=== PATIENT | female | born 1945 | race Caucasian/White ===

== ENCOUNTER 2016-09-26 15:57 | Emergency (ER) | payer OTHER, MEDICARE ==
[~2016-09-26] VITALS: Ht 167.6 cm; Wt 54.4 kg
[2016-09-26 16:08] VITALS: BP 119/77
--- NOTE | 2016-09-26 16:40 | ED UPPER/LOWER EXTREMITY COMPL ---
History of Present Illness General Chief Complaint: Lower Extremity Problems Stated Complaint: SIB WALK IN TO R/O BLOOD CLOT Source: patient, family Exam Limitations: no limitations Vital Signs & Intake/Output Vital Signs & Intake/Output Vital Signs Date Time Temp Pulse Resp B/P Pulse O2 O2 Flow FiO2 Ox Delivery Rate 09/26 1608 97.2 87 16 119/77 95 Room Air Allergies Coded Allergies: NO KNOWN ALLERGIES (01/22/13) Reconcile Medications Clonazepam 0.5 MG TABLET 1 TAB PO BID PRN ANXIETY (Reported) Desipramine HCl 25 MG TABLET 3 TAB PO QAM MENTAL HEALTH (Reported) Escitalopram Oxalate 10 MG TABLET 1 TAB PO DAILY MENTAL HEALTH (Reported) Gabapentin 300 MG CAPSULE 1 CAP PO BID MENTAL HEALTH (Reported) Multivitamin (Multi-Day Vitamins) 1 EACH TABLET 1 TAB PO DAILY SUPPLEMENT ( Reported) Temazepam 22.5 MG CAPSULE 1 CAP PO QPM SLEEP (Reported) Venlafaxine HCl (Venlafaxine HCl ER) 150 MG CAP.ER.24H 1 CAP PO DAILY MENTAL HEALTH (Reported) Triage Note: PT STATSE HER LEFT LEG IS SWOLLEN SINCE YESTERDAY,. PT WAS SENT IN BY [facility] TO R/O DVT PT STATES SHE DOES NOT REMEMBER INJURY HER LEG. PT IS A SMOKER. STATES SHE NEVER HAD A BLOOD CLOT BEFORE. Triage Nurses Notes Reviewed? yes Onset: Abrupt Duration: day(s): (YESTERDAY) Pain/Injury Location: Left: Leg. No Modifying Factors: none HPI: 71-year-old female comes into emergency room with complaints of left calf pain and swelling has been going on since yesterday. Patient denies any trauma or falls. Denies any prior history of blood clots. Denies any anticoagulants that she is on. Denies any prior history of similar symptoms. Patient was sent in for ultrasound to rule out blood clot in the left lower leg. (NINA KRUGER) Past History Travel History Traveled to [place] past 21 day No Medical History Any Pertinent Medical History? see below for history Musculoskeletal: osteoporosis Psychiatric: depression Surgical History Surgical History: non-contributory Psychosocial History Who do you live with Spouse Services at Home NO What is your primary language Yakut Tobacco Use: Current Daily Use Daily Tobacco Use Amount/Type: => 5 Cigarettes daily ETOH Use: occasional use Illicit Drug Use: denies illicit drug use Family History Hx Contributory? No (NINA KRUGER) Review of Systems Review of Systems Constitutional: Reports: no symptoms. EENTM: Reports: no symptoms. Respiratory: Reports: no symptoms. Cardiovascular: Reports: no symptoms. Gastrointestinal/Abdominal: Reports: no symptoms. Genitourinary: Reports: no symptoms. Musculoskeletal: Reports: see HPI. Skin: Reports: no symptoms. Neurological/Psychological: Reports: no symptoms. Hematologic/Endocrine: Reports: no symptoms. Immunological: Reports: no symptoms. All Other Systems: Reviewed and Negative (NINA KRUGER) Physical Exam Physical Exam General Appearance: well developed/nourished, no apparent distress, alert Head: atraumatic Eyes: Bilateral: normal appearance. Ears, Nose, Throat: normal ENT inspection, hearing grossly normal Neck: normal inspection Cardiovascular/Respiratory: no respiratory distress Back: normal inspection Leg Left: SWELLING AND TENDERNESS TO LEFT, PULSES INTACT, STRENGTH INTACT, NO SIGNS OF INFECTION, NO ERYTHEMA, Neurologic/Tendon: normal sensation, normal motor functions, normal tendon functions, responds to pain, no evidence tendon injury, no pulse deficit Skin: intact, normal color, warm/dry Lymphatic: no anterior cervical shavon (NINA KRUGER) Progress Differential Diagnosis: arterial insufficiency, cellulitis, CHF, dislocation, DVT, fracture, PE Plan of Care: Orders Procedure Date/time Status US-UNILATERAL VENOUS DOPPLER 09/26 162 Active Current Medications Sig/Davina Start time Last Medication Dose Stop Time Status Admin Enoxaparin Sodium 55 MG ONCE ONE 09/26 1700 AC (Lovenox) 09/26 1701 Comments: 09/26/2016 5:18:45 PM Ultrasound was ordered but it was after 4:00 pm. The nurse spoke with the fire alarm technician and she is leaving because it is after her shift . The nurse communicated to her that there is a high suspicion for DVT. boiler or engine operatorpet supplies salesperson does not come in for ultrasound of the leg to rule out DVT. Case was discussed with Dr. IBARRA. We decided it was best to give the patient a shot of Lovenox. Patient and are very dissatisfied with care and upset at the fact that we cannot get the ultrasound. I explained to them it is not up to me. Patient denied any history of internal bleeding before. Patient was given a outpatient slip for ultrasound to be done tomorrow morning. Patient was told that she should return to the emergency room if she is not able to get the ultrasound done tomorrow. As stated before patient and are very unhappy with the inability to get ultrasound. Patient has not been having any chest pain or shortness of breath. Hemodynamically stable. Patient and were offered further evaluation if they were concerned for pulmonary embolism with blood work and CAT scan of chest even though she is not exhibiting any symptoms at this time. (NINA KRUGER) Departure Departure Disposition: HOME OR SELF CARE Condition: Stable Clinical Impression Primary Impression: Left leg swelling Referrals: FADIA MONTES MD (PCP/Family) Additional Instructions: Please get outpatient ultrasound tomorrow. Ultrasound is no longer hearing [facility] emergency room. Return if any chest pain shortness of breath or any other concerns worsening symptoms. Slip for outpatient ultrasound has been provided to you. Please go over all results of today's visit with your primary care doctor. Contact your primary care doctor to let them know you were here in the emergency room. There may be nonspecific findings which may not be related to your visit today here in the emergency room but may require further evaluation and chronic monitoring by your primary care doctor. If you had a laceration today the chance of foreign body always remains. You should follow-up with your primary care doctor for recheck in 3-5 days for a wound check. If you had an x-ray done there is a chance that a fracture could have been missed on initial read and you should follow-up with your primary care doctor for repeat x-rays if symptoms persist. If your blood pressure was elevated here in the emergency room please have rechecked by her primary care doctor within the next 48 hours by your primary care doctor. If you were prescribed a narcotic here in the emergency room or any type of controlled substances you're not allowed to drive while taking this medication or operate any type of heavy machinery. Narcotics can make you feel lightheaded dizziness nausea and can cause constipation. You may need to parts picker a stool softener. Thank you for choosing [facility] emergency room. Please return to the emergency room immediately if you have any other concerns worsening of symptoms. Departure Forms: Customer Survey General Discharge Information (NINA KRUGER) PA/WINDSURFING INSTRUCTOR Co-Sign Statement Statement: ED Attending supervision documentation- x I saw and evaluated the patient. I have also reviewed all the pertinent lab results and diagnostic results. I agree with the findings and the plan of care as documented in the PA's/WINDSURFING INSTRUCTOR's documentation. [] I have reviewed the ED Record and agree with the PA's/WINDSURFING INSTRUCTOR's documentation. [] Additions or exceptions (if any) to the PAs/WINDSURFING INSTRUCTOR's note and plan are summarized below: [] (FRED DE LEON,ABIOLA)
[2016-09-26] MEDS ORDERED: TEMAZEPAM22.5 MG PO (16:49)
[2016-09-26] MEDS ORDERED: VENLAFAXINE HC150 MG PO (16:49)
[2016-09-26] MEDS ORDERED: ESCITALOPRAM OX10 MG PO (16:49)
[2016-09-26] MEDS ORDERED: GABAPENTIN300 M2 PO (16:49)
[2016-09-26] MEDS ORDERED: MULTI-DAY VITA1 EACH PO (16:50)
[2016-09-26] MEDS ORDERED: CLONAZEPAM0.5 M2 PO (16:50)
[2016-09-26] MEDS ORDERED: DESIPRAMINE HCL PO (16:50)
[2016-09-27] MEDS ORDERED: ELIQUIS5 M1 PO (18:05)
== END 2016-09-26 17:17 ==
LOC: ERH 15:57
DX: M79.89 Other specified soft tissue disorders (principal)
CPT/HCPCS: 96372; J1650

== ENCOUNTER 2016-09-27 15:32 | Emergency (ER) | payer OTHER, MEDICARE ==
[~2016-09-27] VITALS: Ht 167.6 cm; Wt 54.4 kg
[~2016-09-27 15:32] MED LIST: CLONAZEPAM0.5 M2 PO; DESIPRAMINE HCL PO; ESCITALOPRAM OX10 MG PO; GABAPENTIN300 M2 PO; MULTI-DAY VITA1 EACH PO; TEMAZEPAM22.5 MG PO; VENLAFAXINE HC150 MG PO
--- NOTE | 2016-09-27 16:05 | ED UPPER/LOWER EXTREMITY COMPL ---
History of Present Illness General Chief Complaint: Lower Extremity Problems Stated Complaint: ?BLOOD CLOT IN LEFT LEG Source: patient Exam Limitations: no limitations Vital Signs & Intake/Output Vital Signs & Intake/Output Vital Signs Date Time Temp Pulse Resp B/P Pulse O2 O2 Flow FiO2 Ox Delivery Rate 09/27 1830 85 126/84 09/27 1536 97.8 78 18 136/86 94 Room Air Allergies Coded Allergies: NO KNOWN ALLERGIES (01/22/13) Reconcile Medications Apixaban (Eliquis) 5 MG TABLET 1 TAB PO BID dvt 2 tabs bid for 7 days 1 tab bid chronically Clonazepam 0.5 MG TABLET 1 TAB PO BID PRN ANXIETY (Reported) Desipramine HCl 25 MG TABLET 3 TAB PO QAM MENTAL HEALTH (Reported) Escitalopram Oxalate 10 MG TABLET 1 TAB PO DAILY MENTAL HEALTH (Reported) Gabapentin 300 MG CAPSULE 1 CAP PO BID MENTAL HEALTH (Reported) Multivitamin (Multi-Day Vitamins) 1 EACH TABLET 1 TAB PO DAILY SUPPLEMENT ( Reported) Temazepam 22.5 MG CAPSULE 1 CAP PO QPM SLEEP (Reported) Venlafaxine HCl (Venlafaxine HCl ER) 150 MG CAP.ER.24H 1 CAP PO DAILY MENTAL HEALTH (Reported) Triage Note: PT WAS SEEN IN ER YESTERDAY, STATES THAT SHE CAME DUE TO LLE SWOLLEN, DENIES PAIN, WAS TOLD TO GO FOR OUT PT US TODAY, PT WAS SENT TO ER BY DAYANNA QUINONES DUE TO POSITIVE FOR DVT. PT CONTINUES TO DENIES PAIN AT THIS TIME Triage Nurses Notes Reviewed? yes Onset: Abrupt Duration: day(s): (3), constant Timing: recent history No Modifying Factors: none HPI: 71-year-old female comes into emergency room with a positive outpatient blood clot to left calf. Patient was seen here last night by myself and had high suspicion for DVT was given a slip for an outpatient ultrasound to be done today. Patient was medicated with Lovenox last night. Patient comes back in due to positive DVT. Denies any other changes in symptoms. Patient had no chest pain or shortness of breath last night and continues to have none of those symptoms. (NINA KRUGER) Past History Travel History Traveled to [place] past 21 day No Medical History Any Pertinent Medical History? see below for history Neurological: NONE EENT: NONE Cardiovascular: NONE Respiratory: NONE Gastrointestinal: NONE Hepatic: NONE Renal: NONE Musculoskeletal: osteoporosis Psychiatric: depression Endocrine: NONE Blood Disorders: NONE Cancer(s): NONE COUNTY ADVISER/Reproductive: NONE Surgical History Surgical History: non-contributory Psychosocial History Who do you live with Spouse Services at Home NO What is your primary language Afghan Tobacco Use: Never used ETOH Use: denies use Illicit Drug Use: denies illicit drug use Family History Hx Contributory? No (NINA KRUGER) Review of Systems Review of Systems Constitutional: Reports: no symptoms. EENTM: Reports: no symptoms. Respiratory: Reports: no symptoms. Cardiovascular: Reports: no symptoms. Gastrointestinal/Abdominal: Reports: no symptoms. Genitourinary: Reports: no symptoms. Musculoskeletal: Reports: see HPI. Skin: Reports: no symptoms. Neurological/Psychological: Reports: no symptoms. Hematologic/Endocrine: Reports: no symptoms. Immunological: Reports: no symptoms. All Other Systems: Reviewed and Negative (NINA KRUGER) Physical Exam Physical Exam General Appearance: well developed/nourished, mild distress Head: atraumatic Eyes: Bilateral: PERRL, EOMI. Ears, Nose, Throat: normal pharynx, normal ENT inspection, hearing grossly normal Neck: normal inspection Cardiovascular/Respiratory: regular rate/rhythm, no respiratory distress Back: normal inspection Leg Left: soft tissue tenderness, limited range of motion Neurologic/Tendon: normal sensation, normal motor functions, normal tendon functions, responds to pain, no evidence tendon injury, no pulse deficit Skin: intact, normal color, warm/dry Lymphatic: no anterior cervical shavon (NINA KRUGER) Progress Differential Diagnosis: arterial insufficiency, cellulitis, CHF, compartment syndrome, contusion, dislocation, DVT, fracture, gout, septic arthritis, sprain, tendon injury Plan of Care: Orders Procedure Date/time Status PARTIAL THROMBOPLASTIN TIME 09/27 1540 Complete PROTHROMBIN TIME 09/27 1540 Complete COMPREHENSIVE METABOLIC PANEL 09/27 1540 Complete CBC WITHOUT DIFFERENTIAL 09/27 1540 Complete Laboratory Tests 09/27/16 1557: Anion Gap 6, Estimated GFR 49 L, BUN/Creatinine Ratio 26.4 H, Glucose 83, Calcium 9.4, Total Bilirubin 0.4, AST 23, ALT 27, Alkaline Phosphatase 93, Total Protein 6.8, Albumin 3.8, Globulin 3.0, Albumin/Globulin Ratio 1.3, PT 9.4, INR 0.89 L, APTT 29, CBC w Diff NO MAN DIFF REQ, RBC 4.04 L, MCV 98.8, MCH 32.9 H , RDW 14.1, MPV 7.3 L, Gran % 70.1, Lymphocytes % 16.5 L, Monocytes % 9.3, Eosinophils % 4.0, Basophils % 0.1, Absolute Granulocytes 2.9, Absolute Lymphocytes 0.7 L, Absolute Monocytes 0.4, Absolute Eosinophils 0.2, Absolute Basophils 0, PUBS MCHC 33.3 Diagnostic Imaging: Viewed by Me: Ultrasound. Discussed w/RAD: Ultrasound. Radiology Impression: SERVICE DATE: 09/27/16 EXAM TYPE: US - US- UNILATERAL VENOUS DOPPLER EXAMINATION: US TRIPLEX LOWER EXTREMITY, LEFT CLINICAL INFORMATION: Left leg swelling COMPARISON: None TECHNIQUE: Color-flow triplex imaging with spectral analysis and compression Doppler were performed on the left lower extremity. FINDINGS: The left common femoral vein is compressible and exhibits a normal phasic waveform; this suggests that the iliac veins are widely patent above. Within the proximal thigh, the visualized profunda femoris vein is patent and the examined greater saphenous vein and saphenofemoral junction are normal. Superficial femoral vein is patent in the proximal and mid thigh. Nonocclusive thrombus is present within the femoral vein of the lower thigh. Also, nonocclusive thrombus is seen within the popliteal vein. The posterior tibial veins are grossly patent. Peroneal veins are suboptimally visualized. Within the medial popliteal fossa, a Robbins's cyst has a bilobed appearance as it extends around the semimembranosus; the posterior component of the Robbins's cyst measures 1.8 x 1 x 3.8 cm. IMPRESSION: 1. Nonocclusive thrombus is present within the left popliteal vein and femoral vein of the lower thigh. 2. Robbins's cyst is present within the popliteal fossa. The test result was discussed with Dr. Hutchinson of the Emergency Room at 2:38 PM and it was ascertained that the content and the importance of the findings was understood at the time of the direct communication. Comments: 09/27/2016 6:46:01 PM Case was discussed with Dr. garcia from vascular. Patient will be started on oral anticoagulants and follow-up as an outpatient. Patient was educated on oral anticoagulants and risk for bleeding. Patient declined rectal exam. Patient denies any blood in her stool. Clinically looks well. Nontoxic- appearing. Patient still is not exhibiting any chest pain or shortness of breath. Case discussed with Dr. Hutchinson. (NINA KRUGER) Departure Departure Disposition: HOME OR SELF CARE Condition: Stable Clinical Impression Primary Impression: Deep vein thrombosis (DVT) of left lower extremity Referrals: PRABHJOT DE LEON,CAMILA MONTES MD,FADIA (PCP/Family) Additional Instructions: You are being starting on an oral blood thinner. This medication has the risk for internal bleeding. Please return to the emergency room immediately if any blood in your stool vomiting blood or any other concerns. Follow-up with vascular doctor for your blood clot in her left leg. Take medication as prescribed. Return to the emergency room immediately if any other concerns worsening symptoms. Please go over all results of today's visit with your primary care doctor. Contact your primary care doctor to let them know you were here in the emergency room. There may be nonspecific findings which may not be related to your visit today here in the emergency room but may require further evaluation and chronic monitoring by your primary care doctor. If you had a laceration today the chance of foreign body always remains. You should follow-up with your primary care doctor for recheck in 3-5 days for a wound check. If you had an x-ray done there is a chance that a fracture could have been missed on initial read and you should follow-up with your primary care doctor for repeat x-rays if symptoms persist. If your blood pressure was elevated here in the emergency room please have rechecked by her primary care doctor within the next 48 hours by your primary care doctor. If you were prescribed a narcotic here in the emergency room or any type of controlled substances you're not allowed to drive while taking this medication or operate any type of heavy machinery. Narcotics can make you feel lightheaded dizziness nausea and can cause constipation. You may need to greens picker a stool softener. Thank you for choosing [facility] emergency room. Please return to the emergency room immediately if you have any other concerns worsening of symptoms. Departure Forms: Customer Survey General Discharge Information Prescriptions: Current Visit Scripts Apixaban (Eliquis) 1 TAB PO BID #70 TAB 2 tabs bid for 7 days 1 tab bid chronically (NINA KRUGER) PA/ASSISTANT FRONT END MANAGER Co-Sign Statement Statement: ED Attending supervision documentation- [x] I saw and evaluated the patient. I have also reviewed all the pertinent lab results and diagnostic results. I agree with the findings and the plan of care as documented in the PA's/ASSISTANT FRONT END MANAGER's documentation. [] I have reviewed the ED Record and agree with the PA's/ASSISTANT FRONT END MANAGER's documentation. [] Additions or exceptions (if any) to the PAs/ASSISTANT FRONT END MANAGER's note and plan are summarized below: [] (LACIE DE LEON,NIGEL Burnham)
[2016-09-27 16:06] LABS: ABSOLUTE BASOPHIL COUNT 0 /CUMM (0.0-0.2); ABSOLUTE EOSINOPHIL COUNT 0.2 /CUMM (0.0-0.7); ABSOLUTE GRANULOCYTE CT 2.9 /CUMM (1.4-6.5); ABSOLUTE LYMPH COUNT 0.7 /CUMM (1.2-3.4); ABSOLUTE MONOCYTE COUNT 0.4 /CUMM (0.10-0.60); BASOPHIL % 0.1 % (0.0-2.0); GRANULOCYTE % 70.1 % (42.2-75.2); HEMATOCRIT 39.9 % (37-47); MEAN CORPUSCULAR HGB 32.9 PG (27.0-31.0); MEAN CORPUSCULAR HGB CONC 33.3 G/DL (33.0-37.0); MEAN CORPUSCULAR VOLUME 98.8 FL (81.0-99.0); MEAN PLATELET VOLUME 7.3 FL (7.4-10.4); PLATELET COUNT 192 /CUMM (130-400); RBC DISTRIBUTION WIDTH 14.1 % (11.5-14.5); RED BLOOD CELL CT 4.04 /CUMM (4.20-5.40); WHITE BLOOD CELL COUNT 4.1 /CUMM (4.8-10.8)
[2016-09-27 16:24] LABS: PT 9.4 SEC (9.4-12.5); PTT 29 SEC (25-37)
[2016-09-27] MEDS ORDERED: ELIQUIS5 M1 PO (18:05)
[2016-09-27 18:30] VITALS: BP 126/84
== END 2016-09-27 18:30 ==
LOC: ERH 15:32
PROVIDERS: Physician Assistant Medical
DX: I82.402 Acute embolism and thrombosis of unspecified deep veins of left lower extremity (principal)